=== PATIENT | male | born 1995 | race Caucasian/White ===

== ENCOUNTER 2017-03-18 18:01 | Emergency (ER) | payer OTHER ==
[2017-03-18 18:05] VITALS: BP 139/110; PULSE 68; RESP 16; TEMP 98.6; O2SAT 96
[2017-03-18] MEDS ORDERED: TDAP ADULT 0.5 ML INJ (BOOSTRIX) IM ONE (18:24)
--- NOTE | 2017-03-18 18:27 | EDPHY ---
H & P Time Seen by Provider: 03/18/17 18:20 HPI/ROS: CHIEF COMPLAINT: Burn to foot HISTORY OF PRESENT ILLNESS: 5 days ago patient had hot oil at work drop on his right foot will wearing Birkenstocks sustained a burn to the dorsum and instep of his right foot. Presents with blister that has popped and worsening pain and redness on the dorsum. REVIEW OF SYSTEMS: No fever or chills. No weakness or numbness distally. 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 Patient has partial-thickness burn on the instep is right foot the blister that is already popped. Diameter is 6 x 6 cm with a 1 cm open wound superiorly with granulation tissue. 1 cm surrounding redness with some tenderness to palpation. No lymphangitis. Normal motor sensory and capillary refill in the toes. Normal tendon function in the toes. No fluctuance or abscess palpated. Emergency Department course/MDM: Tetanus updated, wound care, oral antibiotics to include clindamycin with unknown severity of penicillin allergy. Abscess, fasciitis, severe cellulitis or deep space infection all considered and thought unlikely. Normal motor sensory and tendon function and circulation distally. Smoking Status: Current every day smoker Constitutional: Initial Vital Signs Temperature (C) 37 C 03/18/17 18:03 Heart Rate 68 03/18/17 18:03 Respiratory Rate 16 03/18/17 18:03 Blood Pressure 139/110 H 03/18/17 18:03 O2 Sat (%) 96 03/18/17 18:03 O2 Delivery Mode Room Air Allergies/Adverse Reactions: Penicillins Allergy (Verified 03/18/17 18:06) Home Medications: Medication Instructions Recorded Clindamycin HCl [Clindamycin] 300 mg PO TID #30 cap 03/18/17 MDM/Departure - MDM Medications Given: Discontinued Medications Clindamycin (Cleocin 150 Mg Prepack#6) 1 btl TAKEHOME EDNOW ONE PRN Reason: Protocol Stop: 03/18/17 18:29 Last Admin: 03/18/17 18:40 Dose: 1 btl Diphtheria/Tetanus/Acell Pertussis (Boostrix) 0.5 ml IM .ONCE ONE Stop: 03/18/17 18:25 Last Admin: 03/18/17 18:31 Dose: 0.5 ml - Depart Disposition: Home, Routine, Self-Care Clinical Impression: Second degree burn of right foot Qualifiers: Encounter type: initial encounter Qualified Code(s): T25.221A - Burn of second degree of right foot, initial encounter Cellulitis Qualifiers: Site of cellulitis: extremity Site of cellulitis of extremity: lower extremity Laterality: right Qualified Code(s): L03.115 - Cellulitis of right lower limb Condition: Good Instructions: Second Degree Burn (ED) Prescriptions: Clindamycin HCl [Clindamycin] 300 mg PO TID #30 cap Referrals: Work Comp Ref/Restrictions [Outside] - 1 day without fail (Follow-up tomorrow with work comp clinic. No work until approved by work comp clinic. Stay off your feet as much as possible for the next 24 hours.)
[2017-03-18] MEDS ORDERED: CLINDAMYCIN 150MG PREPACK#6 BTL TAKEHOME ONE (18:28)
== END 2017-03-18 18:42 | disposition home or self-care (01) ==
DX: T25.221A Burn of second degree of right foot, initial encounter (principal); L03.115 Cellulitis of right lower limb; X10.2XXA Contact with fats and cooking oils, initial encounter; Y92.511 Restaurant or cafe as the place of occurrence of the external cause; Y99.0 Civilian activity done for income or pay; Y93.89 Activity, other specified; F17.200 Nicotine dependence, unspecified, uncomplicated; Z23 Encounter for immunization

== ENCOUNTER 2017-10-24 21:20 | Emergency (ER) | payer OTHER ==
--- NOTE | 2017-10-24 21:57 | EDPHY ---
H & P Smoking Status: Current every day smoker Time Seen by Provider: 10/24/17 21:47 HPI/ROS: CHIEF COMPLAINT: Laceration right great toe HISTORY OF PRESENT ILLNESS: 21-year-old male presents to the emergency department with the [facility] with evaluation of a laceration to his right great toe. Patient states 3 days ago he stepped on some glass while he was barefoot. He applied some adhesive skin glue and then tried to get the glue off of the wound. He does states that he has chronic numbness in his right great toe for last 2 years. He believes his tetanus shot is current. He is here for medical clearance for nursing home. ROS: He denies retained foreign body. He denies any other trauma or injury. ( Palma Rizo) Past Medical/Surgical History: Meckel's diverticulum (Palma Rizo) Social History: Single (Palma Rizo) Physical Exam: On examination, the patient has a 3 cm fairly superficial laceration to the plantar aspect of the right great toe. It does not extend into the MTP joint. No evidence of retained foreign body. No palpable bony tenderness. Full range of motion of his right great toe. The other toes do not appear injured. He has slightly decreased sensation to light touch to the plantar aspect of the right great toe. There is no redness or warmth or signs of infection. No lymphangitis. (Palma Rizo) Constitutional: Initial Vital Signs Temperature (C) 36.8 C 10/24/17 22:05 Heart Rate 65 10/24/17 22:05 Respiratory Rate 16 10/24/17 22:05 Blood Pressure 128/78 H 10/24/17 22:05 O2 Sat (%) 97 10/24/17 22:05 O2 Delivery Mode Room Air Allergies/Adverse Reactions: Penicillins Allergy (Verified 10/24/17 22:07) Home Medications: Medication Instructions Recorded Clindamycin HCl [Clindamycin] 300 mg PO TID #30 cap 03/18/17 MDM/Departure - [facility] ED Course/Re-evaluation: 21-year-old male presents to the emergency department for medical clearance for nursing home. He has a healing laceration to the right great toe. The wound was thoroughly cleansed and dressed. I explained why sutures are not indicated given that the wound is 3 days old. He was given wound care precautions. He states his tetanus shot is current. (Palma Rizo) I did not see this patient while he was in the emergency department. However his care was discussed with the PA while the patient was in the department. I agree with treatment plan and management (Tommy Dickson) - Depart Disposition: Home, Routine, Self-Care Clinical Impression: Laceration of right great toe Qualifiers: Encounter type: initial encounter Damage to nail status: without damage Foreign body presence: without foreign body Qualified Code(s): S91.111A - Laceration without foreign body of right great toe without damage to nail, initial encounter Condition: Good Instructions: Laceration (ED), Acute Wounds (ED) Additional Instructions: Keep wound dry, clean and protected. Return if he notices any signs or symptoms of infection such as redness, swelling, increased pain, fever, purulent drainage. You have been medically cleared for nursing home. Referrals: Malathi Martinez DO [Doctor of Osteopathy] - As per Instructions (Primary care provider regional service manager)
[2017-10-24 22:07] VITALS: BP 128/78
== END 2017-10-24 22:15 | disposition home or self-care (01) ==
LOC: EEVIPCON 21:20
DX: S91.111A Laceration without foreign body of right great toe without damage to nail, initial encounter (principal); F17.200 Nicotine dependence, unspecified, uncomplicated; W25.XXXA Contact with sharp glass, initial encounter

== ENCOUNTER 2017-12-26 14:37 | Emergency (ER) | payer SELFPAY ==
--- NOTE | 2017-12-26 15:15 | EDPHY ---
H & P Stated Complaint: LLQ pain into groin x 2 days Time Seen by Provider: 12/26/17 14:48 HPI/ROS: CHIEF COMPLAINT: Left groin pain and swelling HISTORY OF PRESENT ILLNESS: 22-year-old male presents with left groin pain and swelling. Onset a mild pain and slight swelling in the left groin 3 months ago. Occurred 2 days after shaving groin. The pain and swelling have gradually increased and now are mild/moderate. The pain increases with standing and with lifting. Associated with erythema in the inguinal area today. No urinary symptoms and no urethral discharge. No abdominal pain. REVIEW OF SYSTEMS: complete 10 point ROS negative except at noted in the HPI - Personal History Current Tetanus Diphtheria and Acellular Pertussis (TDAP): Yes - Medical/Surgical History Hx Asthma: No Hx Chronic Respiratory Disease: No Hx Diabetes: No Hx Cardiac Disease: No Hx Renal Disease: No Hx Cirrhosis: No Hx Alcoholism: No Hx HIV/AIDS: No Hx Splenectomy or Spleen Trauma: No Other PMH: MECKEL'S DIVERTICULUM (at age 5) - Social History Smoking Status: Current every day smoker - Physical Exam Exam: General Appearance: Alert, pleasant Eyes: Pupils equal and round, no conjunctival pallor or injection ENT, Mouth: Mucous membranes moist Neck: Normal inspection Respiratory: Lungs are clear to auscultation Cardiovascular: Regular rate and rhythm Gastrointestinal: Abdomen is soft and nontender Genitourinary: Left inguinal tenderness, swelling and erythema, no testicular tenderness or swelling Neurological: A&O, nonfocal, normal gait Skin: Warm and dry Extremities: Normal inspection Psychiatric: Mood and affect normal Constitutional: Initial Vital Signs Temperature (C) 36.8 C 12/26/17 14:39 Heart Rate 96 12/26/17 14:39 Respiratory Rate 18 12/26/17 14:39 Blood Pressure 128/89 H 12/26/17 14:39 O2 Sat (%) 97 12/26/17 14:39 O2 Delivery Mode Room Air Allergies/Adverse Reactions: Penicillins Allergy (Unknown, Verified 12/26/17 14:41) as child Home Medications: Medication Instructions Recorded Cephalexin [Keflex (*)] 500 mg PO TID #30 cap 12/26/17 Medical Decision Making - Diagnostics Imaging Results: Imaging Impressions Extremity Ultrasound 12/26/17 15:12 Impression: Mildly prominent left inguinal lymph nodes, possibly reactive. Clinical follow-up is recommended. Findings discussed with RINA GROSS 12/26/2017 at 15:58. Imaging: Discussed imaging studies w/ mail caller Radiologist ED Course/Re-evaluation: This patient presents left groin pain and erythema. I suspect that he has lymphadenopathy, with overlying cellulitis. I do not appreciate a hernia. Inguinal ultrasound obtained and reveals adenopathy. Results discussed with the patient. Urinalysis is negative; no evidence of UTI. No urethral discharge ; doubt STD. Keflex prescribed. Differential Diagnosis: includes though not limited to hernia, STD, UTI - Data Points Laboratory Results: Laboratory Results 12/26/17 15:00 12/26/17 15:13 12/26/17 12/26/17 12/26/17 15:25 15:13 15:00 WBC 9.82 10^3/uL H 10^3/uL (3.80-9.50) RBC 5.02 10^6/uL 10^6/uL (4.40-6.38) Hgb 15.8 g/dL g/dL (13.7-17.5) Hct 45.4 % % (40.0-51.0) MCV 90.4 fL fL (81.5-99.8) MCH 31.5 pg pg (27.9-34.1) MCHC 34.8 g/dL g/dL (32.4-36.7) RDW 12.9 % % (11.5-15.2) Plt Count 229 10^3/uL 10^3/uL (150-400) MPV 10.4 fL fL (8.7-11.7) Neut % (Auto) Not Reported Lymph % (Auto) Not Reported [place] % (Auto) Not Reported Eos % (Auto) Not Reported Baso % (Auto) Not Reported Nucleat RBC Rel Count Not Reported Absolute Neuts (auto) Not Reported Absolute Lymphs (auto) Not Reported Absolute Monos (auto) Not Reported Absolute Eos (auto) Not Reported Absolute Basos (auto) Not Reported Absolute Nucleated RBC Not Reported Immature Gran % Not Reported Seg Neutrophils % 67.0 % % Band Neutrophils % 0 % % Lymphocytes % 11.0 % % Monocytes % 22.0 % % Eosinophils % 0 % % Basophils % 0 % % Metamyelocytes % 0 % % Myelocytes % 0 % % Promyelocytes % 0 % % Blast Cells % 0 % % Immature Gran # Not Reported Absolute Seg Neuts 6.58 10^/uL H 10^/uL (1.70-6.50) Absolute Band Neuts 0.00 10^3/uL 10^3/uL (0.00-0.70) Absolute Lymphocytes 1.08 10^3/uL 10^3/uL (1.00-3.00) Absolute Monocytes 2.16 10^3/uL H 10^3/uL (0.30-0.80) Absolute Eosinophils 0.00 10^3/uL L 10^3/uL (0.03-0.40) Absolute Basophils 0.00 10^3/uL L 10^3/uL (0.02-0.10) Absolute Metamyelocyte 0.00 10^3/mL 10^3/mL (0.00-0.00) Absolute Myelocytes 0.00 10^3/mL 10^3/mL (0.00-0.00) Absolute Promyelocytes 0.00 10^3/uL 10^3/uL (0.00-0.00) Absolute Plasma Cells 0.00 10^3/uL 10^3/uL (0.00-0.00) Absolute Blast Cells 0.00 10^3/uL 10^3/uL (0.00-0.00) Plasma Cells % 0 % % Platelet Estimate ADEQUATE (ADEQ) Smear Review By Pending Sodium 140 mEq/L mEq/L (135-145) Potassium 4.0 mEq/L mEq/L (3.3-5.0) Chloride 103 mEq/L mEq/L (97-110) Carbon Dioxide 23 mEq/l mEq/l (22-31) Anion Gap 14 mEq/L mEq/L (8-16) BUN 14 mg/dL mg/dL (7-23) Creatinine 0.9 mg/dL mg/dL (0.7-1.3) Estimated GFR > 60 Glucose 115 mg/dL H mg/dL (70-100) Calcium 9.6 mg/dL mg/dL (8.5-10.4) Urine Color YELLOW Urine Appearance CLEAR Urine pH 5.0 (5.0-7.5) Ur Specific [place] 1.015 (1.002-1.030) Urine Protein NEGATIVE (NEGATIVE) Urine Ketones NEGATIVE (NEGATIVE) Urine Blood NEGATIVE (NEGATIVE) Urine Nitrate NEGATIVE (NEGATIVE) Urine Bilirubin NEGATIVE (NEGATIVE) Urine Urobilinogen NEGATIVE EU EU (0.2-1.0) Ur Leukocyte Esterase NEGATIVE (NEGATIVE) Urine Glucose NEGATIVE (NEGATIVE) Point of Care Test Results: Urine Dip Specific [place] (1.002-1.030) 1.015 PH (5.0-7.5) 6.5 Leukocytes (Negative) Negative Nitrites (Negative) Negative Protein (Negative) Negative Glucose (Negative) Negative Ketones (Negative) Trace Urobilnogen (0.2-1.0 EU) 1.0 Bilirubin (Negative) Negative Blood (Negative) Negative Departure - Departure Disposition: Home, Routine, Self-Care Clinical Impression: Cellulitis Qualifiers: Site of cellulitis: other site Qualified Code(s): L03.818 - Cellulitis of other sites Condition: Good Instructions: Cephalexin (By mouth), Cellulitis (ED) Additional Instructions: Ibuprofen 600 mg 3 times daily while the pain persists. Referrals: Siva Snowden MD [Medical Doctor] - 2-3 days, if not improved () Prescriptions: Cephalexin [Keflex (*)] 500 mg PO TID #30 cap
[2017-12-26 15:32] LABS: PLATELET COUNT 229 10^3/uL (150-400)
[2017-12-26 16:40] VITALS: BP 123/70
== END 2017-12-26 16:40 | disposition home or self-care (01) ==
DX: L03.818 Cellulitis of other sites (principal); F17.200 Nicotine dependence, unspecified, uncomplicated